=== PATIENT | female | born 1965 | race Hispanic/Latino ===

== ENCOUNTER 2018-06-29 10:28 | Emergency (ER) | payer BC, OTHER ==
[2018-06-29 10:31] VITALS: BMI 30.7
[2018-06-29 10:33] VITALS: PULSE 80; RESP 20; TEMP 97.3
--- NOTE | 2018-06-29 11:37 | ED PDOC ---
HPI: Trauma/Fall - HPI Time Seen by Provider: 06/29/18 10:46 Chief Complaint (Nursing): Trauma Chief Complaint (Provider): fall History Per: Patient History/Exam Limitations: no limitations Onset/Duration Of Symptoms: Hrs (eds) Location Of Injury: Right: Leg, Left: Ankle Additional Complaint(s): Pt. is a healthy 52 year old Female who lost her footing going down the stairs and slipped down the last 2 steps, twisting her left ankle. Pt. reports she was able to get up and has been able to bear weight since but with mild pain. Pt. denies hitting her head, denies neck/chest/abdominal pain. Pt. is not taking anticoagulants. Past Medical History Reviewed: Historical Data, Nursing Documentation, Vital Signs Vital Signs: Last Vital Signs Temp 97.3 F L 06/29/18 10:32 Pulse 80 06/29/18 10:32 Resp 20 06/29/18 10:32 BP 142/91 H 06/29/18 10:32 Pulse Ox 100 06/29/18 10:32 - Medical History PMH: No Chronic Diseases - Family History Family History: States: No Known Family Hx - Allergies Allergies/Adverse Reactions: Allergies Allergy/AdvReac Type Severity Reaction Status Date / Time No Known Allergies Allergy Verified 06/29/18 11:13 Review of Systems Constitutional: Negative for: Fever Eyes: Negative for: Pain Cardiovascular: Negative for: Chest Pain, Light Headedness Musculoskeletal: Positive for: Leg Pain. Negative for: Neck Pain Skin: Negative for: Bruising Neurological: Negative for: Numbness Physical Exam - Reviewed Nursing Documentation Reviewed: Yes Vital Signs Reviewed: Yes - Physical Exam Appears: Positive for: Well Head Exam: Positive for: NORMAL INSPECTION Skin: Positive for: Normal Color Eye Exam: Positive for: Normal appearance ENT: Positive for: Normal ENT Inspection Neck: Positive for: Normal, Painless ROM Cardiovascular/Chest: Positive for: Regular Rate, Rhythm, Chest Non Tender Respiratory: Positive for: Normal Breath Sounds Gastrointestinal/Abdominal: Positive for: Normal Exam, Soft. Negative for: Tenderness Back: Positive for: Normal Inspection. Negative for: Vertebral Tenderness Extremity: Positive for: Other (LLE: mild tenderness and swelling over lateral malleolus, no swelling or tenderness over medial malleolus. FROM of ankle. RLE: mild tenderness over proximal fibula, no swelling. FROM of knee. OTHER: hips, knees full painless ROM) - ECG O2 Sat by Pulse Oximetry: 100 Medical Decision Making Medical Decision Making: Motrin po given. Left ankle x-ray: no fx, no dislocation; as read by me Right tib/fib: no fx, no dislocation; as read by me. Pt. feeling better. Left ankle immobilized with veronica wrap and aircast. Crutches given. Disposition - Clinical Impression Clinical Impression: Injury of ankle, left - Patient ED Disposition Is Patient to be Admitted: No Counseled Patient/Family Regarding: Studies Performed, Diagnosis, Need For Followup - Disposition Referrals: Aric Bermudez MD [Staff Provider] - Disposition: Routine/Home Disposition Time: 12:28 Condition: STABLE Instructions: Ankle Sprain (DC) Forms: [facility] ([place]), [facility] ED School/Work Excuse
--- NOTE | 2018-06-29 12:34 | RAD ---
Date of service: 06/29/2018 PROCEDURE: Radiographs of the right tibia and fibula. HISTORY: Status post fall COMPARISON: No prior study available for comparison TECHNIQUE: Frontal and lateral views obtained. FINDINGS: BONES: No fracture or destructive lesion. JOINT SPACES: Joint spaces intact with no significant degenerative osteoarthritis OTHER FINDINGS: No evidence of radiopaque foreign bodies. No subcutaneous emphysema. IMPRESSION: No evidence of acute displaced fracture nor dislocation.
--- NOTE | 2018-06-29 12:35 | RAD ---
Date of service: 06/29/2018 PROCEDURE: Left ankle HISTORY: trauma COMPARISON: Correlation made with concurrent radiographs of the right tibia and fibula FINDINGS: BONES: No evidence of acute displaced fracture nor dislocation. Note made of a few tiny corticated densities seen within the soft tissues subjacent to the inferomedial aspect of the distal fibula overlying the lateral margin of the ankle mortise. Findings may represent some all posttraumatic mineralization. JOINTS: Normal. No osteoarthritis. Ankle mortise maintained. Talar dome intact SOFT TISSUES: Mild bilateral soft tissue swelling lateral greater than medial. OTHER FINDINGS: None. IMPRESSION: No evidence of acute displaced fracture nor dislocation. Mild bilateral soft tissue swelling lateral greater than medial.
[2018-06-29 20:56] VITALS: BP 135/82; O2SAT 99
== END 2018-06-29 12:29 | disposition home or self-care (01) ==
LOC: H.ER 10:28
DX: S93.402A Sprain of unspecified ligament of left ankle, initial encounter (principal); W10.9XXA Fall (on) (from) unspecified stairs and steps, initial encounter; Y92.89 Other specified places as the place of occurrence of the external cause